=== PATIENT | female | born 2000 | race Caucasian/White ===

== ENCOUNTER 2019-09-19 02:30 | Emergency (ER) | payer MEDICAID ==
[~2019-09-19] VITALS: Ht 165.1 cm; Wt 74.4 kg
--- NOTE | 2019-09-19 02:35 | NUR ---
PT HARESH BLS. TAKEN TO BED 8
[2019-09-19 02:36] VITALS: BP 133/74
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
--- NOTE | 2019-09-19 02:43 | NUR ---
Dr. Barnes examining patient.
--- NOTE | 2019-09-19 02:43 | NUR ---
CALLED PATIENTS MOTHER PER PATIENT REQUEST AT #[phone] PROVIDED BY PATIENT.NO ANSWER LEFT VOICEMAIL REQUESTING A CALL BACK.
--- NOTE | 2019-09-19 03:27 | NUR ---
pt sleeping in bed. arousable to name. no acute changes. pt is a/o x4
--- NOTE | 2019-09-19 05:48 | NUR ---
SPOKE WITH PATIENTS MOTHER ABOUT A RIDE. MOTHER STATES SHE WOULD CONTACT PATIENTS FATHER FOR A RIDE.
[2019-09-19 06:11] VITALS: BP 133/74
--- NOTE | 2019-09-19 06:12 | NUR ---
Patient discharged with v/s stable. Written and verbal after care instructions given and explained. Patient verbalized understanding. Ambulatory with steady gait. All questions addressed prior to discharge. Advised to follow up with PMD.
== END 2019-09-19 06:12 | disposition home or self-care (01) ==
LOC: MED 02:30
DX: F25.9 Schizoaffective disorder, unspecified (principal)
CPT/HCPCS: 99283